=== PATIENT | female | born 1950 | race Caucasian/White ===

== ENCOUNTER 2018-01-06 06:04 | Day surgery (SDC) | payer MEDICARE, MEDICAID ==
[2018-01-06] MEDS ORDERED: Lidocaine/Epinephrine 1% 1:100000 10 ML IJ ONE (07:29)
[2018-01-06] MEDS ORDERED: Oxymetazoline 0.05% Nasal Spray (30 ml) NS ONE (07:30)
[2018-01-06] MEDS ORDERED: (Novolin R) Insulin Human Regular 100 units/ml vial SC ONE (07:53)
[2018-01-06] MEDS ORDERED: (Novolin R) Insulin Human Regular 100 units/ml vial ONE (08:00)
[2018-01-06] MEDS ORDERED: Dextrose 5%/0.45% NS 1,000 ML IV SCH (08:15)
[2018-01-06] MEDS ORDERED: Propofol 10 mg/ml Inj (20 ML) ONE (08:27)
[2018-01-06] MEDS ORDERED: ceFAZolin IV 1 gm in Dextrose 1 GM/50 ML BAG IVPB ONE (08:34)
[2018-01-06] MEDS ORDERED: Lidocaine Hydrochloride 5 ML INJ ONE (08:36)
[2018-01-06] MEDS ORDERED: Sodium Chloride 0.9% 500 ML IV ONE (08:40)
[2018-01-06] MEDS ORDERED: Succinylcholine Chloride 20 mg/ml Syr (5 ml) IV ONE (08:50)
[2018-01-06] MEDS ORDERED: Sodium Chloride 0.9% 1,000 ML IV SCH (09:30)
[2018-01-06 11:16] VITALS: BP 131/76; PULSE 88; RESP 18; TEMP 97; O2SAT 100
--- NOTE | 2018-01-06 20:22 | OP ---
PROCEDURE DATE: 01/06/2018 PREOPERATIVE DIAGNOSIS: Nasopharyngeal mass. POSTOPERATIVE DIAGNOSIS: Nasopharyngeal mass. PROCEDURE: Endoscopic nasopharyngeal mass biopsy. SIGNIFICANT FINDINGS: Nasopharyngeal mass. DESCRIPTION OF PROCEDURE: The patient was brought into the room, placed in supine position. Anesthesia was initiated through an ET tube. The patient was draped in the usual manner. Afrin-soaked pledgets were inserted into the nasal cavity that remained there for at least 5 minutes and removed. A 0-degree scope was inserted into the right nasal cavity passed to the nasopharynx. Nasopharyngeal mass was noted. Multiple biopsies were taken. Bleeding was controlled using suction cautery. The scope was removed. The patient was taken off the anesthesia and taken to the recovery room in stable manner. Gualberto Cordoba MD [email or web address]
== END 2018-01-06 11:19 | disposition home or self-care (01) ==
LOC: C.SDS 06:04
PROVIDERS: ATTEND Otolaryngology
DX: R22.0 Localized swelling, mass and lump, head (principal)
CPT/HCPCS: 30100; 82948; 88305; 88342; J0690; J2704; J7030; J7040